=== PATIENT | female | born 2000 | race Caucasian/White ===

== ENCOUNTER 2020-06-17 07:13 | Outpatient (CLI) | payer OTHER | END 2020-06-17 08:30 | disposition home or self-care (01) | LOC: MRI 07:13 | PROVIDERS: ATTEND General Practice | DX: J32.0 Chronic maxillary sinusitis (principal); R10.2 Pelvic and perineal pain; R21 Rash and other nonspecific skin eruption; R07.0 Pain in throat; R13.10 Dysphagia, unspecified; Z13.89 Encounter for screening for other disorder; Z13.220 Encounter for screening for lipoid disorders; Z11.3 Encounter for screening for infections with a predominantly sexual mode of transmission; Z13.1 Encounter for screening for diabetes mellitus; E07.89 Other specified disorders of thyroid; R22.1 Localized swelling, mass and lump, neck | CPT/HCPCS: 70542 ==

== ENCOUNTER 2022-06-12 14:53 | Emergency (ER) | payer OTHER ==
[~2022-06-12] VITALS: Ht 157.5 cm; Wt 74.8 kg
== END 2022-06-12 20:54 | disposition home or self-care (01) ==
LOC: ER 14:53
DX: O99.891 Other specified diseases and conditions complicating pregnancy (principal); R31.9 Hematuria, unspecified; Z3A.00 Weeks of gestation of pregnancy not specified

== ENCOUNTER 2022-06-15 10:36 | Emergency (ER) | payer OTHER ==
[~2022-06-15] VITALS: Ht 152.4 cm; Wt 70.3 kg
== END 2022-06-15 15:29 | disposition home or self-care (01) ==
LOC: EMR PED 10:36 → ER 10:39
DX: O20.9 Hemorrhage in early pregnancy, unspecified (principal); Z3A.09 9 weeks gestation of pregnancy; Z88.6 Allergy status to analgesic agent

== ENCOUNTER 2023-06-07 17:36 | Emergency (ER) | payer OTHER ==
[~2023-06-07] VITALS: Ht 152.4 cm; Wt 74.8 kg
== END 2023-06-07 19:30 | disposition home or self-care (01) ==
LOC: ER 17:36
DX: A60.00 Herpesviral infection of urogenital system, unspecified (principal)

== ENCOUNTER 2023-08-06 09:04 | Outpatient (CLI) | payer OTHER | END 2023-08-06 09:12 | disposition home or self-care (01) | LOC: SONOGRAMA 09:04 | PROVIDERS: ATTEND General Practice | DX: R10.2 Pelvic and perineal pain (principal); L29.9 Pruritus, unspecified ==

== ENCOUNTER → 2023-08-11 07:56 | Outpatient (CLI) | payer OTHER ==
[2023-08-11 10:00] LABS: C-REACTIVE PROTEIN 0.42 MG/DL (0.00-0.29)
== END | disposition home or self-care (01) ==
LOC: LAB 07:56
PROVIDERS: ATTEND General Practice
DX: R21 Rash and other nonspecific skin eruption (principal); R94.5 Abnormal results of liver function studies; R93.2 Abnormal findings on diagnostic imaging of liver and biliary tract; R10.9 Unspecified abdominal pain

== ENCOUNTER 2023-08-11 09:01 | Outpatient (CLI) | payer OTHER | END 2023-08-11 09:03 | disposition home or self-care (01) | LOC: TOM 09:01 | PROVIDERS: ATTEND General Practice | DX: R93.2 Abnormal findings on diagnostic imaging of liver and biliary tract (principal); R10.9 Unspecified abdominal pain; R21 Rash and other nonspecific skin eruption; R94.5 Abnormal results of liver function studies ==